=== PATIENT | male | born 1985 | race Caucasian/White ===

== ENCOUNTER 2019-12-11 02:16 | Emergency (ER) | payer OTHER, SELFPAY ==
--- NOTE | ~2019-12-11 | XR_ITS ---
XR chest 2V DATE: 12/11/2019 02:33 INDICATION: Cough TECHNIQUE: PA and lateral views COMPARISON: 04/09/2017 two-view chest FINDINGS: Normal heart size. No hilar or mediastinal enlargement. No pulmonary infiltrate or consolid ation, pleural effusion, pulmonary vascular congestion or pneumothorax. IMPRESSION: No active cardiopulmonary disease Reviewed, dictated and finalized at location A. ODONTIC TREATMENT COORDINATOR
[2019-12-11 02:19] VITALS: BP 138/64; PULSE 98; RESP 20; TEMP 36.6; O2SAT 99
--- NOTE | 2019-12-11 02:22 | ED.SOB ---
HPI - SOB/Dyspnea General Chief Complaint: Upper Respiratory Infection Stated Complaint: uri Time Seen by Provider: 12/11/19 02:19 Source: patient and RN notes reviewed Mode of arrival: ambulatory Limitations: no limitations History of Present Illness HPI Narrative: Pt is a 34 y/o male who presents to the ED with c/o shortness of breath which began 3 hours ago. Pt states he has been having respiratory symptoms for longer, but it has worsened tonight. He also reports rhinorrhea, wheezing, cough, and vomiting but denies a fever or sore throat. He states he typically vomited when he coughed vigorously. He states he has recently been exposed to people who have been sick. Pt reports a PMHx of asthma when he was young, but denies having any episodes recently. He also states he smokes approximately 6 cigarettes every day. MD elicited complaint: shortness of breath Pertinent past history: asthma (when he was young) Onset (ago): hour(s) (3 hours ago) Context: other (exposure to sick people recently) Timing: progressively worsening (since onset) Known history of: asthma (when he was young; no episodes recently) Associated symptoms: cough, wheezing, nausea/vomiting (vomiting) and other (rhinorrhea) Related Data Allergies Allergy/AdvReac Type Severity Reaction Status Date / Time blueberry Allergy Severe SHOCK Verified 12/11/19 02:28 lidocaine Allergy Mild Hives / Verified 12/11/19 02:28 Red Face Review of Systems Review of Systems: All systems reviewed & are unremarkable except as noted in HPI and below Constitutional: Constitutional: Denies fever(s) ENT: Reports nasal discharge (rhinorrhea) and Denies sore throat Respiratory: Respiratory: Reports cough, Reports dyspnea and Reports wheezing Gastrointestinal: Gastrointestinal: Reports vomiting PMFSH Past Medical History Medical History (Updated 12/11/19 @ 03:05 by Home Pryor DO) Anxiety Arthritis Depression GERD (gastroesophageal reflux disease) Irritable bowel syndrome Psoriasis PTSD (post-traumatic stress disorder) Surgical History Surgical History (Updated 12/11/19 @ 02:31 by Lisa De Jesus) H/O rotator cuff surgery Hx of tonsillectomy Social History Social History (Updated 12/11/19 @ 02:32 by Lisa De Jesus) Smoking status: Current every day smoker Tobacco type: cigarettes Gender identity (if verbalized by the patient): Male Exam Narrative: Exam Narrative: APPEARANCE: No acute distress, nontoxic, resting in bed EYES: EOMI HEENT: Normocephalic, atraumatic, TMs clear bilaterally, bilateral turbinates boggy, mild erythema no exudate posterior pharynx RESPIRATORY: No respiratory distress C mild wheezing with coughing only, no rhonchi or rales CARDIOVASCULAR: Regular rate and rhythm without murmurs rubs or gallops. ABDOMINAL: Soft, nontender, nondistended, no rebound or guarding MUSCULOSKELETAl: Moves all extremities. No clubbing, cyanosis or edema. NEURO: Awake and alert. Following commands, speech normal, no focal deficits SKIN:: Warm, dry. No rashes lesions or abrasions PSYCHIATRIC: Normal affect/mood, Course Course Emergency Course: Patient states he is feeling much better following breathing treatment. Repeat lung exam clear to all station bilaterally Discussed with patient results of workup and diagnosis. Discussed need for follow-up with primary care, proper use of medication, and reasons to return to the emergency department. Patient understands and agrees to current treatment plan Vital Signs Vital signs: Vital Signs Temperature 97.8 F 12/11/19 02:19 Pulse Rate 98 12/11/19 02:19 Respiratory Rate 20 12/11/19 02:19 Blood Pressure 138/64 12/11/19 02:19 Pulse Oximetry 99 12/11/19 02:19 Temperature 97.8 F 12/11/19 02:19 Pulse Rate 98 12/11/19 02:45 Respiratory Rate 18 12/11/19 02:45 Blood Pressure 138/64 12/11/19 02:19 Pulse Oximetry 99 12/11/19 02:19 MDM - SOB/Dyspnea Lab Data Labs: Influ
--- NOTE | 2019-12-11 02:29 | PC.NURSE ---
Patient being taken to xray.
[2019-12-11] MEDS: ALBUTEROL SULFATE NEB 2.5 MG/0.5 ML INH 5 MG INHALATION (02:37)
[2019-12-11 02:38] VITALS: PULSE 95; RESP 18
[2019-12-11] MEDS: IPRATROPIUM BR 0.02% INH SOLN 0.5 MG/2.5 ML VIAL INHALATION (02:38)
[2019-12-11 02:45] VITALS: PULSE 98; RESP 18
[2019-12-11 03:21] VITALS: BP 123/81; PULSE 85; RESP 18; O2SAT 98
== END 2019-12-11 03:24 | disposition home or self-care (01) ==
PROVIDERS: Emergency Provider Emergency Medicine; PCP Internal Medicine
DX: J10.1 Influenza due to other identified influenza virus with other respiratory manifestations (principal); F17.210 Nicotine dependence, cigarettes, uncomplicated; K21.9 Gastro-esophageal reflux disease without esophagitis; K58.9 Irritable bowel syndrome, unspecified; M19.90 Unspecified osteoarthritis, unspecified site
CPT/HCPCS: 71046; 87804; 94640; 99283

== ENCOUNTER 2020-02-15 12:45 | Emergency (ER) | payer OTHER, SELFPAY ==
--- NOTE | ~2020-02-15 | CT_ITS ---
EXAMINATION: CT abdomen pelvis w con EXAM DATE: 02/15/2020 14:36 INDICATION: Nausea vomiting, lower abdominal pain. TECHNIQUE: Spiral CT of the abdomen and pelvis was performed following intravenous injection of 100 m L Omnipaque 350. Axial, coronal and sagittal images were reviewed. The dose-length product (DLP) fo r this examination was 487.71 mGy-cm. The exposure was tailored according to patient size (auto mA e xposure control), and iterative reconstruction (ASIR) was used as additional dose reduction technique . Comparison is made to prior examination from 10/20/2015. FINDINGS: The liver, spleen, adrenal glands and pancreas are unremarkable. Gallbladder is unremarkab le. No biliary obstruction. Portal and splenic veins are patent. Kidneys enhance symmetrically. T here is no hydronephrosis. The prostate is unremarkable. The bladder is unremarkable. There is no retroperitoneal or pelvic lymphadenopathy. The appendix is normal. There is mild scattered colonic diverticulosis. There is no adjacent inflamm atory change to suggest diverticulitis. The stomach and small bowel are unremarkable. There is expec ricky amount of colonic stool. No free intraperitoneal gas. The heart is normal in size. There are no pericardial or pleural effusions. The lung bases are unremarkable. The bones are unremarkable. IMPRESSION: 1. No acute intra-abdominal findings. 2. Mild scattered colonic diverticulosis. Reviewed, dictated and finalized at location A.
[2020-02-15 12:47] VITALS: BP 118/72; PULSE 96; RESP 17; TEMP 36.8; O2SAT 100
[2020-02-15 13:04] LABS: Basophils Absolute Auto 0.1 K/mm3 (0.0-0.1); Basophils Percent Auto 0.6 % (0.2-1.2); Eosinophils Percent Auto 0.5 % (0-4.4); Hematocrit 48.8 % (42.0-52.0); Hemoglobin 16.5 g/dL (14.0-18.0); Immature Granulocyte Absolute 0.02 K/mm3 (0.00-0.031); Immature Granulocyte Percent A 0.3 % (0-0.5); Lymphocytes Absolute Auto 2.12 K/mm3 (0.9-3.2); Lymphocytes Percent Auto 27.3 % (18.3-44.2); Mean Corpuscular HGB Conc 33.8 g/dl (32-36); Mean Corpuscular Hemoglobin 29.2 pg (26-34); Mean Corpuscular Volume 86.2 fl (80-100); Mean Platelet Volume 10.3 fl (7.4-10.4); Monocytes Absolute Auto 0.6 K/mm3 (0.1-0.6); Monocytes Percent Auto 7.7 % (2.6-8.5); Neutrophils Absolute Auto 4.9 K/mm3 (1.3-6.7); Neutrophils Percent Auto 63.6 % (45.5-73.1); Platelet Count Result 256 k/mm3 (150-375); Red Blood Count 5.66 M/mm3 (4.6-6.20); Red Cell Distribution Width 11.5 % (11.5-14.5); White Blood Count 7.8 K/mm3 (4.5-10.0)
[2020-02-15 13:19] LABS: Alanine Aminotransferase 47 U/L (4-50); Alkaline Phosphatase 80 U/L (38-126); Aspartate Amino Transferase 27 U/L (17-59); Bilirubin,Total 0.9 mg/dL (0.2-1.3); Blood Urea Nitrogen 18 mg/dL (9-20); Calcium 9.8 mg/dL (8.4-10.2); Carbon Dioxide 26 mmol/L (22-30); Chloride 100 mmol/L (98-107); Estimated CRCL calculation 84 ml/min; Estimated Glomerular Filt Rate > 60; Glucose 104 mg/dL (75-110); Lipase 39 U/L (23-300); Potassium 4.1 mmol/L (3.4-5.0); Sodium 137 mmol/L (137-145)
--- NOTE | 2020-02-15 13:39 | ED.ABDPAIN ---
HPI - Abdominal Pain General Chief Complaint: Abdominal Pain Stated Complaint: weak, chills Time Seen by Provider: 02/15/20 13:39 Source: patient and RN notes reviewed Mode of arrival: ambulatory Limitations: no limitations History of Present Illness HPI narrative: A 35 y/o male presents to the ED with severe, sharp, diffuse ABD pain for the past 6 days. He states that he woke up with severe N/V/D 6 days ago and shortly after he developed severe, sharp, diffuse ABD pain. He notes that eating aggravates his ABD pain. He reports associated decreased intake, generalized weakness, fatigue, and a subjective fever. He also notes that he has not had a BM in 4 days. He denies any sore throat, cough, dysuria, hematuria, blood in stool, rhinorrhea, or nasal congestion. MD elicited complaint: abdominal pain Pertinent past history: none Onset (ago): day(s) Location: diffuse Severity: severe Quality: sharp Exacerbating factors: eating Associated symptoms: nausea (resolved), vomiting (resolved), diarrhea (resolved), fever (subjective), constipation (for 4 days) and other (decreased intake, generalized weakness, and fatigue) Related Data Home Medications Medication Instructions Recorded Confirmed diphenoxylate-atropine [Lomotil] 1 tablet PO TID 02/15/20 docusate sodium [Colace] 100 mg PO DAILY 02/15/20 esomeprazole magnesium [Nexium] 40 mg PO DAILY 02/15/20 ondansetron 02/15/20 Allergies Allergy/AdvReac Type Severity Reaction Status Date / Time blueberry Allergy Severe SHOCK Verified 02/15/20 12:50 lidocaine Allergy Mild Hives / Verified 02/15/20 12:50 Red Face Review of Systems Review of Systems: All systems reviewed & are unremarkable except as noted in HPI and below Constitutional: Constitutional: Reports fever(s) (subjective), Reports lethargy, Reports poor appetite and Reports weakness (generalized) ENT: Denies nasal congestion, Denies nasal discharge and Denies sore throat Respiratory: Respiratory: Denies cough Gastrointestinal: Gastrointestinal: Reports abdominal pain (diffuse), Denies hematochezia, Reports constipation (for 4 days), Reports diarrhea (resolved), Reports nausea (resolved) and Reports vomiting (resolved) Genitourinary: Genitourinary: Denies hematuria and Denies dysuria PMF Past Medical History Medical History Anxiety Arthritis Depression Fatty liver, alcoholic GERD (gastroesophageal reflux disease) Irritable bowel syndrome Psoriasis PTSD (post-traumatic stress disorder) Surgical History Surgical History H/O rotator cuff surgery History of placement of ear tubes History of removal of cyst History of tonsillectomy and adenoidectomy Hx of eye surgery Social History Social History (Updated 02/15/20 @ 13:48 by Jourdan Rivas) Smoking status: Current every day smoker Tobacco type: cigarettes Alcohol intake: former Substance use: current Substance use type: marijuana Gender identity (if verbalized by the patient): Male Exam Narrative: Exam Narrative: GENERAL: Well-appearing, well-nourished, and in no acute distress. HEAD: Normocephalic, atraumatic. EYES: EOMI. CHEST: Clear to auscultation. No respiratory distress. No wheezes rales or rhonchi HEART: Regular rate and rhythm. No murmur heard. Normal peripheral pulses. ABDOMEN: Soft, nondistended, normal active bowel sounds. Mild tenderness to palpation throughout the abdomen, without guarding. No CVA tenderness EXTREMITIES: Normal range of motion. No edema. SKIN: Warm, dry, no rash. NEURO: No focal deficits. Alert and oriented x3. PSYCH: Normal mood and affect Course Vital Signs Vital signs: Vital Signs Temperature 98.2 F 02/15/20 12:47 Pulse Rate 96 02/15/20 12:47 Respiratory Rate 17 02/15/20 12:47 Blood Pressure 118/72 02/15/20 12:47 Pulse Oximetry 100 02/15/20 12:47 Temperature 98.2 F 02/15/20 12:47 Pulse R
[2020-02-15 13:57] LABS: Add Urine Microscopic? YES; Appearance Urine Clear (Clear); Bilirubin Urine Negative (Negative); Blood Urine Negative (Negative); Color Urine Yellow (Yellow); Glucose Urine UA Negative (Negative); Ketones Urine Trace mg/dL (Negative); Leukocyte Esterase Ur Negative LEU/UL (Negative); Mucus Urine Heavy /lpf; Nitrate Urine Negative (Negative); Protein Urine 1+ mg/dL (Negative); RBC Urine 0-2 /hpf (0-2); Urobilinogen Urine Negative mg/dL (<2.0); WBC Urine 0-3 /hpf
[2020-02-15] MEDS: SODIUM CHLORIDE 0.9% IV 1,000 ML 999 ML IV CONT (14:07)
[2020-02-15] MEDS: ONDANSETRON INJ 4 MG/2 ML VIAL IV PUSH (14:07)
== END 2020-02-15 16:07 | disposition home or self-care (01) ==
PROVIDERS: Emergency Provider Emergency Medicine; PCP Family Medicine
DX: K52.9 Noninfective gastroenteritis and colitis, unspecified (principal); M19.90 Unspecified osteoarthritis, unspecified site; K21.9 Gastro-esophageal reflux disease without esophagitis; K58.9 Irritable bowel syndrome, unspecified; F17.210 Nicotine dependence, cigarettes, uncomplicated; K57.90 Diverticulosis of intestine, part unspecified, without perforation or abscess without bleeding
CPT/HCPCS: 36415; 74177; 80053; 81001; 83690; 85025; 96374; 96375; 99284; J0131; J2405; J7030; Q9967

== ENCOUNTER 2020-03-29 06:16 | Outpatient (CLI) | payer OTHER, SELFPAY | END 2020-03-29 06:17 | disposition home or self-care (01) | PROVIDERS: PCP Family Medicine; Visit Provider Internal Medicine Gastroenterology | DX: Z01.812 Encounter for preprocedural laboratory examination (principal); Z20.828 Contact with and (suspected) exposure to other viral communicable diseases | CPT/HCPCS: 87635; C9803; U0003 ==

== ENCOUNTER 2020-03-31 01:02 | Day surgery (SDC) | payer OTHER, SELFPAY ==
[2020-03-26 12:34] VITALS: BMI 28.3
[2020-03-31 08:49] VITALS: BP 163/91; PULSE 111; RESP 16; TEMP 36.6; O2SAT 98
[2020-03-31] MEDS: LACTATED RINGERS 1,000 ML 150 ML IV CONT (09:02)
--- NOTE | 2020-03-31 09:22 | WPDANESEPPF ---
Anes - Initial Pre Proc Eval Procedure: Operation Date: 03/31/20 09:45 Proposed Procedures p Esophagogastroduodenoscopy & Colonoscopy - Sha Santos MD Date/Time: 03/31/20 09:22 Surgeon: Sha Santos MD Pre Op Diagnosis: Abdominal Pain Patient Data Age: 35 Gender: M Height: 5 ft 7 in Weight: 81.7 kg Last Vital Signs Temp 97.9 F 03/31/20 08:49 Pulse 111 H 03/31/20 08:49 Resp 16 03/31/20 08:49 BP 163/91 H 03/31/20 08:49 Pulse Ox 98 03/31/20 08:49 Allergies Allergy/AdvReac Type Severity Reaction Status Date / Time blueberry Allergy Severe SHOCK Verified 03/31/20 08:48 lidocaine Allergy Unknown Hives Verified 03/31/20 08:48 Home Medications Medication Instructions Recorded Confirmed Type ondansetron 4 mg TRANSLINGUAL PRN PRN 02/15/20 03/26/20 History Nexium 40 mg PO DAILY 03/26/20 03/26/20 History famotidine 20 mg PO BID 03/26/20 03/26/20 History ibuprofen 200 mg PO Q6H PRN 03/26/20 03/26/20 History Patient hx anesthesia problems: none Family hx anesthesia problems: none PMFSH Past Medical History Medical History (Updated 03/25/20 @ 10:00 by Sha Santos MD) Alternating constipation and diarrhea Anxiety Arthritis Depression Fatty liver, alcoholic GERD (gastroesophageal reflux disease) Irritable bowel syndrome Psoriasis PTSD (post-traumatic stress disorder) Weight loss Surgical History Surgical History H/O rotator cuff surgery History of placement of ear tubes History of removal of cyst History of tonsillectomy and adenoidectomy Hx of eye surgery Social History Social History Smoking status: Current every day smoker Tobacco type: cigarettes Alcohol intake: former Substance use: current Substance use type: marijuana Gender identity (if verbalized by the patient): Male Anes - Eval Final PreProcedure Day of Procedure 03/31/20 09:22 Patient weight: normal Heart: regular rate and rhythm Lungs: clear to auscultation Airway: Mallampati scale class II Neurological: alert and oriented Last oral intake: >/= 8 hours ASA classification: II Emergent: no Anesthetic plan: proceed Anesthesia type and monitoring: general GIVS and standard monitoring Informed Consent: The patient's anesthetic plan and its attendant risks and benefits were discussed with the patient/family/POA. Questions were solicited and answers provided to the satisfaction of the patient/family/POA.
--- NOTE | 2020-03-31 09:41 | WPDHPUPDATE1 ---
History and Physical Update Update Date/Time: 03/31/20 09:41 History and Physical has been reviewed, including an updated exam of the patient. There are NO changes in the patient's condition. Risks, benefits, and alternatives have been discussed and questions answered. Patient agrees to proceed with procedure.
[2020-03-31 10:14] VITALS: BP 106/73; PULSE 76; RESP 22; O2SAT 100
[2020-03-31 10:24] VITALS: BP 112/79; PULSE 76; RESP 16; O2SAT 100
[2020-03-31 10:34] VITALS: BP 106/71; PULSE 58; RESP 22; O2SAT 100
== END 2020-03-31 11:01 | disposition home or self-care (01) ==
PROVIDERS: PCP Family Medicine; Visit Provider Internal Medicine Gastroenterology
PROC: 0DJ08ZZ Inspection of Upper Intestinal Tract, Via Natural or Artificial Opening Endoscopic (ICD-10-PCS; CPT 43235; principal; 2020-03-31 09:45)
DX: R19.4 Change in bowel habit (principal); R63.4 Abnormal weight loss; R10.84 Generalized abdominal pain; K57.30 Diverticulosis of large intestine without perforation or abscess without bleeding; K64.8 Other hemorrhoids; K21.9 Gastro-esophageal reflux disease without esophagitis; K44.9 Diaphragmatic hernia without obstruction or gangrene; R11.0 Nausea; F41.8 Other specified anxiety disorders; F43.10 Post-traumatic stress disorder, unspecified; K76.0 Fatty (change of) liver, not elsewhere classified; F17.210 Nicotine dependence, cigarettes, uncomplicated; F12.90 Cannabis use, unspecified, uncomplicated
CPT/HCPCS: 45380; 43239; 88305; J2704; J7120

== ENCOUNTER 2020-04-08 07:55 | Outpatient (CLI) | payer OTHER, SELFPAY ==
--- NOTE | ~2020-04-08 | US_ITS ---
EXAMINATION: US abdomen complete DATE: 04/08/2020 08:45 INDICATION: Other unspecified signs and symptoms involving the digestive system, generalized abdomina l pain TECHNIQUE: Multiple grayscale and Doppler ultrasound images of the abdomen were obtained. COMPARISON: 08/20/2019; CT, 02/15/2020 FINDINGS: The head, body, and tail of the pancreas are normal. The liver is normal with normal echoge nicity and echotexture. No surface nodularity. Normal hepatopetal flow in the main portal vein. The g allbladder is normal with no abnormal wall thickening, pericholecystic fluid or stones. The normal co mmon bile duct measures 2 mm. There was no sonographic Dean sign. The visualized portions of the ao rta and inferior vena cava are normal. The right kidney measures 9.2 x 5.4 x 4.5 cm. The left kidney measures 10.6 x 5.7 x 5.1 cm. The kidne ys demonstrate normal parenchymal echogenicity. There is no hydronephrosis. A 9 mm hypoechoic area in the spleen without suspicious correlate on the recent CT likely represents a small lymphangioma or h emangioma. The spleen is otherwise normal in appearance and measures 11.2 cm. IMPRESSION: 1. No sonographic correlate for the patient's symptoms. Reviewed, dictated and finalized at location A.
== END 2020-04-08 07:56 | disposition home or self-care (01) ==
PROVIDERS: PCP Family Medicine; Visit Provider Nurse Practitioner Family
DX: R19.8 Other specified symptoms and signs involving the digestive system and abdomen (principal)
CPT/HCPCS: 76700

== ENCOUNTER 2020-05-19 22:40 | Emergency (ER) | payer OTHER, SELFPAY ==
--- NOTE | ~2020-05-19 | CT_ITS ---
EXAMINATION: CT BRAIN W/O DATE: 05/19/2020 23:41 INDICATION: Vision loss. Hallucinations. Headache. TECHNIQUE: Computed tomography (CT) of the head was performed without intravenous contrast. The dose- length product was 681.00 mGy-cm. The mA was adjusted according to patient size. Iterative reconstruc tion technique was employed. COMPARISON: CT dated 04/09/2017 FINDINGS: Normal brain parenchymal volume for age. Normal birmingham-white differentiation. No acute intrac ranial hemorrhage, infarction, mass or mass effect. No ventriculomegaly or midline shift. Midline sagittal images demonstrate a normal corpus callosum, c raniovertebral junction and sella turcica. Basilar cisterns are patent. Paranasal sinuses and mastoids are pneumatized. No depressed skull fractures. IMPRESSION: 1. No acute intracranial abnormality. Reviewed, dictated and finalized at location A.
[2020-05-19 22:50] VITALS: BP 136/86; PULSE 82; RESP 15; TEMP 36.6; O2SAT 100
--- NOTE | 2020-05-19 23:29 | ED.EYEPROB ---
HPI - Eye Problem General Chief complaint: Eye Problems Stated complaint: Vision loss in Left eye Time Seen by Provider: 05/19/20 22:49 Source: RN notes reviewed History of Present Illness HPI Narrative: Patient presents emergency department from home for vision changes. Patient states this evening he was playing video games when he began to have flashing lights out of his left eye. States that with this he had partial loss of vision and gone upstairs to tell his he states that vision became worse and he began to have hallucinations out of his left eye. He states that whenever he thought of it he visualized in his left eye. He states no problems with the right eye. He states that during this time he did have a headache and some ringing in his ears. He states that this time all the symptoms have resolved. He states he was smoking marijuana this evening which she does on a nightly basis. Patient states that he has been worked up for chronic abdominal pain over the past 4 months which I think is irritable bowel. He states that his abdominal pain is cramping that caused him to feel like he may pass out and he states he was having this abdominal pain this evening which she states could have contributed to the symptoms. States that this time he has no headache or ringing in the ears and states all vision is back to normal. He denies wearing contacts or glasses Related Data Home Medications Medication Instructions Recorded Confirmed ondansetron 4 mg TRANSLINGUAL PRN PRN 02/15/20 04/02/20 famotidine 20 mg PO BID 03/26/20 04/02/20 ibuprofen 200 mg PO Q6H PRN 03/26/20 04/02/20 Allergies Allergy/AdvReac Type Severity Reaction Status Date / Time blueberry Allergy Severe SHOCK Verified 05/19/20 22:55 lidocaine Allergy Unknown Hives Verified 04/29/20 09:16 Opioids - Morphine Analogues AdvReac Other Verified 05/19/20 22:55 Review of Systems Review of Systems: Narrative: Gen.: Denies fevers or chills Eyes: See HPI ENT: Denies congestion Respiratory: Denies shortness of breath or cough CV: Denies chest pain or palpitations GI: Chronic abdominal pain nausea, emesis or diarrhea denies burning, urgency, frequency or hematuria Musculoskeletal: Denies back pain or muscle pain Neuro: Denies numbness, tingling, weakness or focal weakness reports headache during episode of vision changes Skin: Denies rash Except as documented, all other systems reviewed and negative [facility] Past Medical History Medical History Alternating constipation and diarrhea Anxiety Arthritis Depression Fatty liver, alcoholic GERD (gastroesophageal reflux disease) Irritable bowel syndrome Psoriasis PTSD (post-traumatic stress disorder) Weight loss Surgical History Surgical History H/O rotator cuff surgery History of placement of ear tubes History of removal of cyst History of tonsillectomy and adenoidectomy Hx of eye surgery Social History Social History Smoking status: Current every day smoker Tobacco type: cigarettes Alcohol intake: former Substance use: current Substance use type: marijuana Gender identity (if verbalized by the patient): Male Exam Narrative: Exam Narrative: APPEARANCE: No acute distress, nontoxic, resting in bed HEENT: Normocephalic, atraumatic, OMM, TMs clear bilaterally EYES: PERRL, EOMI no conjunctival erythema, no swelling of the upper or lower eyelids, no papilledema NECK: Supple, nontender, full range of motion without pain, no meningismus RESPIRATORY: No respiratory distress, clear to auscultation bilaterally with no rhonchi wheezing or rales CARDIOVASCULAR: RRR s murmur ABDOMINAL: Soft, nontender, nondistended MUSCULOSKELETAL: Moves all extremities. No clubbing, cyanosis or edema. NEURO: A and O ?3, following commands, speech normal, cranial nerves II
[2020-05-20 00:05] LABS: Basophils Absolute Auto 0.1 K/mm3 (0.0-0.1); Basophils Percent Auto 0.7 % (0.2-1.2); Eosinophils Absolute Auto 0.1 K/mm3 (0-0.3); Eosinophils Percent Auto 0.6 % (0-4.4); Hematocrit 46.5 % (42.0-52.0); Hemoglobin 15.8 g/dL (14.0-18.0); Immature Granulocyte Absolute 0.03 K/mm3 (0.00-0.031); Immature Granulocyte Percent A 0.3 % (0-0.5); Lymphocytes Absolute Auto 2.46 K/mm3 (0.9-3.2); Mean Corpuscular Hemoglobin 29.6 pg (26-34); Mean Corpuscular Volume 87.1 fl (80-100); Mean Platelet Volume 10.3 fl (7.4-10.4); Monocytes Absolute Auto 0.6 K/mm3 (0.1-0.6); Monocytes Percent Auto 6.8 % (2.6-8.5); Neutrophils Absolute Auto 5.6 K/mm3 (1.3-6.7); Neutrophils Percent Auto 63.6 % (45.5-73.1); Platelet Count Result 234 k/mm3 (150-375); Red Blood Count 5.34 M/mm3 (4.6-6.20); Red Cell Distribution Width 11.7 % (11.5-14.5); White Blood Count 8.8 K/mm3 (4.5-10.0)
[2020-05-20 00:18] LABS: Lipase 85 U/L (23-300)
[2020-05-20 00:19] LABS: Alanine Aminotransferase 32 U/L (4-50); Albumin Level 4.8 g/dL (3.5-5.1); Alkaline Phosphatase 73 U/L (38-126); Aspartate Amino Transferase 25 U/L (17-59); Bilirubin,Total 0.3 mg/dL (0.2-1.3); Blood Urea Nitrogen 16 mg/dL (9-20); Calcium 9.5 mg/dL (8.4-10.2); Carbon Dioxide 28 mmol/L (22-30); Chloride 100 mmol/L (98-107); Estimated Glomerular Filt Rate > 60; Glucose 108 mg/dL (75-110); Potassium 3.8 mmol/L (3.4-5.0); Sodium 137 mmol/L (137-145)
[2020-05-20 00:55] VITALS: BP 127/81; PULSE 80; RESP 20; O2SAT 99
== END 2020-05-20 00:55 | disposition home or self-care (01) ==
PROVIDERS: Emergency Provider Emergency Medicine; PCP Family Medicine
DX: H53.8 Other visual disturbances (principal); M19.90 Unspecified osteoarthritis, unspecified site; K21.9 Gastro-esophageal reflux disease without esophagitis; K58.2 Mixed irritable bowel syndrome; F17.290 Nicotine dependence, other tobacco product, uncomplicated
CPT/HCPCS: 36415; 70450; 80053; 83690; 85025; 99284

== ENCOUNTER 2021-01-19 15:28 | Outpatient (CLI) | payer OTHER, SELFPAY | END 2021-01-19 15:29 | disposition home or self-care (01) | LOC: ANHCOVIDVC 15:29 | PROVIDERS: PCP Family Medicine | DX: Z23 Encounter for immunization (principal) | CPT/HCPCS: 0001A; 91300 ==

== ENCOUNTER 2021-02-09 15:31 | Outpatient (CLI) | payer OTHER, SELFPAY | END 2021-02-09 15:32 | disposition home or self-care (01) | LOC: ANHCOVIDVC 15:31 | PROVIDERS: PCP Family Medicine | DX: Z23 Encounter for immunization (principal) | CPT/HCPCS: 0002A; 91300 ==

== ENCOUNTER 2022-07-05 08:30 | Outpatient (CLI) | payer OTHER, SELFPAY ==
--- NOTE | 2022-07-05 11:00 | NEURO_ITS ---
Impression: # Complains of pain and twitching in left upper extremity muscles. # No Carpal Tunnel Syndrome or ulnar neuropathy. # Normal needle/EMG exam. No evidence of fibrillation, myotonia or fasciculations. # Clinical correlation recommended. Nerve Conduction Studies Anti Sensory Summary Table Stim Site NR Peak (ms) P-T Amp (?V) Site1 Site2 Delta-P (ms) Dist (cm) Rory (m/s) Left Median Anti Sensory (2-3nd Digit) Wrist 2.3 53.1 Wrist 2-3nd Digit 2.3 14.0 61 Wrist 2.4 62.2 Wrist 2-3nd Digit 2.3 14.0 61 Left Radial Anti Sensory (Base 1st Digit) Wrist 1.9 27.4 Wrist Base 1st Digit 1.9 0.0 Left Ulnar Anti Sensory (5th Digit) Wrist 2.3 58.3 Wrist 5th Digit 2.3 14.0 61 Motor Summary Table Stim Site NR Onset (ms) O-P Amp (mV) Site1 Site2 Delta-0 (ms) Dist (cm) Rory (m/s) Left Median Motor (Abd Poll Brev) Wrist 2.9 3.2 Elbow Wrist 4.1 26.0 63 Elbow 7.0 2.9 Left Ulnar Motor (Abd Dig Minimi) Wrist 2.1 6.7 A Elbow Wrist 5.0 30.0 60 A Elbow 7.1 5.9 F Wave Studies NR F-Lat (ms) L-R F-Lat (ms) Left Median (Mrkrs) (Abd Poll Brev) 27.19 Left Ulnar (Mrkrs) (Abd Dig Min) 26.33 EMG Side Muscle Nerve Root Ins Act Fibs Amp Dur Recrt Comment Left 1stDorInt Ulnar C8-T1 Nml Nml Nml Nml Nml Left Ext Indicis Radial (Post Int) C7-8 Nml Nml Nml Nml Nml Left Ext Digitorum Radial (Post Int) C7-8 Nml Nml Nml Nml Nml Left BrachioRad Radial C5-6 Nml Nml Nml Nml Nml Left PronatorTeres Median C6-7 Nml Nml Nml Nml Nml Left Abd Poll Brev Median C8-T1 Nml Nml Nml Nml Nml Left Biceps Musculocut C5-6 Nml Nml Nml Nml Nml Left Triceps Radial C6-7-8 Nml Nml Nml Nml Nml Left Deltoid Axillary C5-6 Nml Nml Nml Nml Nml Left ABD Dig Min Ulnar C8-T1 Nml Nml Nml Nml Nml MTDD
== END 2022-07-05 08:31 | disposition home or self-care (01) ==
PROVIDERS: PCP Family Medicine; Visit Provider Nurse Practitioner Family
DX: M54.2 Cervicalgia (principal)
CPT/HCPCS: 95886; 95909; 95911

== ENCOUNTER 2022-08-25 00:52 | Day surgery (SDC) | payer OTHER, SELFPAY ==
[2022-08-11 10:57] VITALS: BMI 28.1
[2022-08-25 09:25] VITALS: BP 123/69; PULSE 80; RESP 17; TEMP 36.1; O2SAT 100
[2022-08-25] MEDS: LACTATED RINGERS 1,000 ML 150 ML IV CONT (09:33)
--- NOTE | 2022-08-25 09:55 | PM.HPGS ---
History of Present Illness History of Present Illness Consent: Risks, benefits, and alternatives have been discussed and questions answered. Patient agrees to proceed with procedure. Chief complaint: GERD Narrative: Sebastián Dukes Jr. is a 37 year old male presents with history of GE reflux and globus sensation. Patient reports a long history of heartburn and acid reflux. Apparently was previously stable on Nexium 40mg p.o. daily supplement with Pepcid. He began to complain of a lump in his throat over the last month. This occurs intermittently. For this reason a trial of omeprazole was started and symptoms of acid reflux intensified. Patient has resumed his previous medication trial but symptoms have not yet resolved over the last 3 weeks. Patient denies any weight loss. He has had no bleeding. No difficulty swallowing. Family history noncontributory. Previous EGD and colonoscopy several years ago 2 years ago was unremarkable. Previously followed by Dr. Velasco. Patient does admit to daily marijuana use. [facility] Past Medical History Medical History Alternating constipation and diarrhea Anxiety Arthritis BMI 27.0-27.9,adult Colonoscopy planned Depression Fatty liver, alcoholic GERD (gastroesophageal reflux disease) IBS (irritable bowel syndrome) Irritable bowel syndrome Psoriasis PTSD (post-traumatic stress disorder) Visual hallucination Weight loss Surgical History Surgical History H/O rotator cuff surgery History of placement of ear tubes History of removal of cyst History of tonsillectomy and adenoidectomy Hx of eye surgery Family History Family History Sibling Family history of mental disorder Depression Family history of gastrointestinal disorder Father Patient's father is in good health Hypertension Family history of psoriasis Hyperlipidemia Mother Family history of diabetes mellitus in first degree relative Hypertension COVID-19 Diabetes mellitus Epilepsy Sibling No problems noted. 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 Gender identity (if verbalized by the patient): Male Spiritual care concerns: No Meds Home Medications and Allergies Home Medications Medication Instructions Recorded Confirmed Type cyclobenzaprine 10 mg tablet 10 mg PO TID PRN muscle spasm #60 05/08/22 08/25/22 Rx tabs diclofenac sodium 75 mg 75 mg PO BID PRN pain #60 tabs 05/08/22 08/25/22 Rx tablet,delayed release amitriptyline 50 mg tablet 25 mg PO QHS #90 tabs 07/13/22 08/25/22 Rx esomeprazole magnesium 40 mg 40 mg PO DAILY #30 caps 07/13/22 08/25/22 Rx capsule,delayed release (Nexium) famotidine 20 mg tablet 20 mg PO BID acid reflux #60 tabs 07/13/22 08/25/22 Rx triamcinolone acetonide 0.1 % 1 applic topical BID #80 grams 07/13/22 08/25/22 Rx topical ointment Allergies Allergy/AdvReac Type Severity Reaction Status Date / Time blueberry Allergy Severe SHOCK Verified 08/25/22 09:23 lidocaine Allergy Unknown Hives Verified 08/25/22 09:23 Opioids - Morphine Analogues AdvReac Other Verified 08/25/22 09:23 Vital Signs Vital Signs - 24 hr 08/25/22 09:25 Temperature 97.0 F L Pulse Rate 80 Respiratory Rate 17 Blood Pressure 123/69 Pulse Oximetry 100 Oxygen Delivery Room Air Exam Narrative: Physical exam reveals patient to be alert. Vital sig
--- NOTE | 2022-08-25 10:16 | WPDANESEPPF ---
Anes - Initial Pre Proc Eval Procedure: Operation Date: 08/25/22 09:45 Proposed Procedures p Esophagogastroduodenoscopy - Simon Gonzáles MD Date/Time: 08/25/22 10:16 Surgeon: Simon Gonzáles MD Pre Op Diagnosis: GERD Patient Data Age: 37 Gender: M Height: 1.73 m Weight: 87.9 kg Last Vital Signs Temp 97.0 F L 08/25/22 09:25 Pulse 80 08/25/22 09:25 Resp 17 08/25/22 09:25 BP 123/69 08/25/22 09:25 Pulse Ox 100 08/25/22 09:25 O2 Del Method Room Air 08/25/22 09:25 Allergies Allergy/AdvReac Type Severity Reaction Status Date / Time blueberry Allergy Severe SHOCK Verified 08/25/22 09:23 lidocaine Allergy Unknown Hives Verified 08/25/22 09:23 Opioids - Morphine Analogues AdvReac Other Verified 08/25/22 09:23 Home Medications Medication Instructions Recorded Confirmed Type cyclobenzaprine 10 mg tablet 10 mg PO TID PRN muscle spasm #60 05/08/22 08/25/22 Rx tabs diclofenac sodium 75 mg 75 mg PO BID PRN pain #60 tabs 05/08/22 08/25/22 Rx tablet,delayed release amitriptyline 50 mg tablet 25 mg PO QHS #90 tabs 07/13/22 08/25/22 Rx famotidine 20 mg tablet 20 mg PO BID acid reflux #60 tabs 07/13/22 08/25/22 Rx triamcinolone acetonide 0.1 % 1 applic topical BID #80 grams 07/13/22 08/25/22 Rx topical ointment esomeprazole magnesium 40 mg 40 mg PO BID #60 caps 08/25/22 Rx capsule,delayed release (Nexium) Patient hx anesthesia problems: none Family hx anesthesia problems: none Results Review: All pre-operative results and documents have been reviewed as part of the pre-operative evaluation. [facility] Past Medical History Medical History Alternating constipation and diarrhea Anxiety Arthritis BMI 27.0-27.9,adult Colonoscopy planned Depression Fatty liver, alcoholic GERD (gastroesophageal reflux disease) IBS (irritable bowel syndrome) Irritable bowel syndrome Psoriasis PTSD (post-traumatic stress disorder) Visual hallucination Weight loss Surgical History Surgical History H/O rotator cuff surgery History of placement of ear tubes History of removal of cyst History of tonsillectomy and adenoidectomy Hx of eye surgery Family History Family History Sibling Family history of mental disorder Depression Family history of gastrointestinal disorder Father Patient's father is in good health Hypertension Family history of psoriasis Hyperlipidemia Mother Family history of diabetes mellitus in first degree relative Hypertension COVID-19 Diabetes mellitus Epilepsy Sibling No problems noted. 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 Informed Consent: The patient's anesthetic plan and its attendant risks and benefits were discussed with the patient/family/POA. Questions were solicited and answers provided to the satisfac
[2022-08-25 10:20] VITALS: BP 98/56; PULSE 82; RESP 28; O2SAT 100
[2022-08-25 10:30] VITALS: BP 108/88; PULSE 80; RESP 21; O2SAT 100
[2022-08-25 10:40] VITALS: BP 102/66; PULSE 81; RESP 19; O2SAT 99
== END 2022-08-25 10:47 | disposition home or self-care (01) ==
PROVIDERS: PCP Family Medicine; Visit Provider Internal Medicine Gastroenterology
PROC: 0DJ08ZZ Inspection of Upper Intestinal Tract, Via Natural or Artificial Opening Endoscopic (ICD-10-PCS; CPT 43235; principal; 2022-08-25 09:45)
DX: K21.9 Gastro-esophageal reflux disease without esophagitis (principal); F41.9 Anxiety disorder, unspecified; M19.90 Unspecified osteoarthritis, unspecified site; F32.A Depression, unspecified; K76.0 Fatty (change of) liver, not elsewhere classified; K58.9 Irritable bowel syndrome, unspecified; L40.9 Psoriasis, unspecified; F43.10 Post-traumatic stress disorder, unspecified; F17.210 Nicotine dependence, cigarettes, uncomplicated; F12.90 Cannabis use, unspecified, uncomplicated
CPT/HCPCS: 43239; 87081; J2704; J3010; J7120

== ENCOUNTER 2023-07-08 19:03 | Emergency (ER) | payer OTHER, SELFPAY ==
--- NOTE | ~2023-07-08 | XR_ITS ---
EXAMINATION: XR chest 2V DATE: 07/08/2023 19:19 INDICATION: 4 weeks of cough TECHNIQUE: PA and lateral views of the chest were obtained. COMPARISON: Chest radiograph dated 12/11/2019 FINDINGS: The lungs remain clear with no focal airspace opacities, pulmonary edema, pleural effusion or pneumot horax. The cardiomediastinal silhouette is normal. Visualized bones and soft tissues are unremarkable . IMPRESSION: 1. No acute cardiopulmonary disease. Reviewed, dictated and finalized at location A.
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
[2023-07-08 19:19] VITALS: BP 132/88; PULSE 98; RESP 16; TEMP 36.6; O2SAT 98
--- NOTE | 2023-07-08 19:21 | PC.NURSE ---
Lung sounds/respiratory exam deferred to provider.
--- NOTE | 2023-07-08 19:35 | ECG_ITS ---
Measurements Intervals [place] Rate: 85 P: 43 WV: 124 QRS: 65 QRSD: 101 T: 43 QT: 359 QTc: 428 Interpretive Statements SINUS RHYTHM NORMAL ELECTROCARDIOGRAM NO PREVIOUS ECG AVAILABLE FOR COMPARISON Electronically Signed On 07-10-2023 11:48:03 CDT by Mj Myrick M.D.
== END 2023-07-08 19:43 | disposition home or self-care (01) ==
PROVIDERS: Emergency Provider Nurse Practitioner Family; PCP Family Medicine
DX: J02.9 Acute pharyngitis, unspecified (principal); R09.82 Postnasal drip; T78.40XA Allergy, unspecified, initial encounter; Z87.891 Personal history of nicotine dependence; F12.90 Cannabis use, unspecified, uncomplicated; M19.90 Unspecified osteoarthritis, unspecified site; K70.0 Alcoholic fatty liver; K21.9 Gastro-esophageal reflux disease without esophagitis; L40.9 Psoriasis, unspecified
CPT/HCPCS: 71046; 93005; 99213; G0463

== ENCOUNTER 2024-05-22 08:36 | Outpatient (CLI) | payer OTHER, SELFPAY ==
--- NOTE | ~2024-05-22 | US_ITS ---
Abdominal Sonogram: Real-time sonographic imaging of the abdomen was performed. Clinical History: Abdominal pain Findings: The liver appears echogenic, with no evidence of mass lesion or bile duct dilatation. Main portal vein demonstrates normal direction of flow. The spleen is upper limits of normal in size with out evidence of focal lesion. The gallbladder is well distended, and appears normal with no evidence of gallstone or wall thickening. The common bile duct measures 3 mm. The visualized pancreas, aorta , and IVC are unremarkable. The right kidney measures 10.7 cm in length and the left kidney measures 10.9 cm. There is no hydronephrosis or renal calculus. Impression: Diffuse fatty infiltration of the liver. Reviewed, dictated and finalized at location M. Impression: Diffuse fatty infiltration of the liver.
== END 2024-05-22 08:37 | disposition home or self-care (01) ==
PROVIDERS: PCP Family Medicine; Visit Provider Physician Assistant Medical
DX: K76.0 Fatty (change of) liver, not elsewhere classified (principal); G89.29 Other chronic pain
CPT/HCPCS: 76700

== ENCOUNTER 2024-08-20 09:22 | Emergency (ER) | payer OTHER, SELFPAY ==
--- NOTE | ~2024-08-20 | CT_ITS ---
EXAMINATION: CT cervical spine wo con DATE: 08/20/2024 12:00 INDICATION: Posterior neck pain. TECHNIQUE: Computed tomography (CT) of the cervical spine was performed without intravenous contrast. Automated exposure control and iterative reconstruction technique were employed. The dose-length pro duct was 470.04 mGy-cm. COMPARISON: None FINDINGS: There is kyphosis of cervical spine. There is 5 degrees levocurvature of cervical spine. Ve rtebral body heights are normal. Intervertebral disc heights are normal. The following disc levels ar e specifically discussed: C2-C3: There is mild left uncovertebral joint osteoarthritis. There is mild bilateral facet joint ost eoarthritis. There is no neural foraminal stenosis. There is no central canal stenosis. C3-C4: There is mild right and moderate left uncovertebral joint osteoarthritis. There is mild bilate ral facet joint osteoarthritis. There is mild left neural foraminal stenosis. There is mild central c anal stenosis. C4-C5: There is mild bilateral uncovertebral joint osteoarthritis. There is mild bilateral facet join t osteoarthritis. There is no neural foraminal stenosis. There is no central canal stenosis. C5-C6: There is mild left uncovertebral joint osteoarthritis. There is no facet joint osteoarthritis. There is no neural foraminal stenosis. There is no central canal stenosis. C6-C7: There is no uncovertebral joint osteoarthritis. There is no facet joint osteoarthritis. There is no neural foraminal stenosis. There is no central canal stenosis. C7-T1: There is no uncovertebral joint osteoarthritis. There is mild bilateral facet joint osteoarthr itis. There is no neural foraminal stenosis. There is no central canal stenosis. IMPRESSION: 1. Mild cervical spondylosis. Reviewed, dictated and finalized at location A.
--- NOTE | ~2024-08-20 | CT_ITS ---
EXAMINATION: CT thoracic spine wo con DATE: 08/20/2024 12:00 INDICATION: Back pain. Spasms. TECHNIQUE: Computed tomography (CT) of the thoracic spine was performed without intravenous contrast. Automated exposure control and iterative reconstruction technique were employed. The dose-length pro duct was 1353.01 mGy-cm. COMPARISON: None FINDINGS: There is 3 degrees dextrocurvature of thoracic spine. Vertebral body heights are normal. Th ere is mild chronic anterior wedging of T11-L1 vertebral bodies, likely physiologic. There is mildly decreased disc height from T3-T4 through T5-T6. There is multilevel mild facet joint osteoarthritis. No neural foraminal stenosis. No central canal stenosis. IMPRESSION: 1. Mild thoracic spondylosis. Reviewed, dictated and finalized at location A.
[2024-08-20 09:25] VITALS: BP 121/81; PULSE 96; RESP 16; TEMP 36.6; O2SAT 98
[2024-08-20 10:30] VITALS: BP 115/78; PULSE 81; RESP 20; O2SAT 95
[2024-08-20] MEDS: methylPREDNISolone SOD SUCC 125 MG VIAL IV PUSH (11:15)
[2024-08-20] MEDS: methocarbamoL 500 MG TABLET 1000 MG PO (11:16)
[2024-08-20] MEDS: KETOROLAC 30 MG/ML VIAL (*BKC) IV PUSH (11:16)
[2024-08-20] MEDS: HYDROcodone/acetaminophen (*CRX) 5-325 MG TABLET 1 TAB PO (11:16)
--- NOTE | 2024-08-20 11:29 | ED.BACK ---
HPI - Back Pain/Injury General Chief Complaint: Back Pain/Injury Stated Complaint: back/neck pain Time Seen by Provider: 08/20/24 09:53 Source: patient Mode of arrival: ambulatory Limitations: no limitations History of Present Illness HPI Narrative: Patient is a 39-year-old male who presents the ED with report of neck and upper back pain. Patient reports having pain for the last 4-5 days after waking up one morning. States pain is worse with any type of movement, sitting up straight, turning head. He has been taking ibuprofen and Flexeril without improvement. Denies any known injury. He does have history of cervical herniated disc. Denies pain radiating down arms. Denies numbness. Denies tingling. Denies fevers, SOB. Related Data Home Medications Medication Instructions Recorded Confirmed cetirizine 10 mg capsule (All Day 10 mg PO DAILY PRN 03/06/24 07/03/24 Allergy (cetirizine)) Allergies Allergy/AdvReac Type Severity Reaction Status Date / Time blueberry Allergy Severe SHOCK Verified 08/20/24 09:23 lidocaine Allergy Unknown Hives Verified 08/20/24 09:23 Opioids - Morphine Analogues AdvReac Other Verified 08/20/24 09:23 Review of Systems Review of Systems: All systems reviewed & are unremarkable except as noted in HPI. All systems reviewed & are unremarkable except as noted in HPI and below PMFSH Past Medical History Medical History Alternating constipation and diarrhea Anxiety Arthritis BMI 30.0-30.9,adult BMI 31.0-31.9,adult BMI 32.0-32.9,adult Chest pain Colonoscopy planned Depression Fatty liver, alcoholic GERD (gastroesophageal reflux disease) IBS (irritable bowel syndrome) Irritable bowel syndrome Psoriasis PTSD (post-traumatic stress disorder) PTSD (post-traumatic stress disorder) Sleep apnea, obstructive Visual hallucination Weight loss Surgical History Surgical History H/O rotator cuff surgery History of placement of ear tubes History of removal of cyst History of tonsillectomy and adenoidectomy Hx of eye surgery Family History Family History Sibling Family history of mental disorder Depression Family history of gastrointestinal disorder Epilepsy Father Patient's father is in good health Hypertension Family history of psoriasis Hyperlipidemia Diabetes mellitus Mother Family history of diabetes mellitus in first degree relative Hypertension COVID-19 Diabetes mellitus Epilepsy Social History Social History Smoking packs per day: 0.5 Smoking cigarettes per day: 10.0 Years smoked: 15 Smoking pack-years: 7.50 Smoking status: Former smoker Tobacco type: cigarettes Second hand tobacco smoke exposure: No Smoking end date: 12/13/22 Alcohol intake: current Alcohol use details: on occasion Substance use: current Substance use type: marijuana Do You Feel Safe in your Home?: Yes Lack of Transportation: No Lack of Food: Sometimes True Current Housing: I Have Housing Concerned About Future Housing: No Difficulty Paying Gas/Electric Bills: No Difficulty Paying for Meds: No Currently Unemployed: No Education: Bachelor's Degree Difficulty w/ Childcare or Family Care: No Living arrangements: with family Occupation/Education: occupation 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 HEAD: Normocephalic, atraumatic. NECK: Mild tenderness palpation throughout lower cervical midline spine and into bilateral paraspinal musculature. No palpable bony defor
[2024-08-20 11:30] VITALS: BP 105/71; PULSE 73; RESP 18; O2SAT 97
== END 2024-08-20 12:55 | disposition home or self-care (01) ==
PROVIDERS: Emergency Provider Physician Assistant; PCP Family Medicine
DX: S29.012A Strain of muscle and tendon of back wall of thorax, initial encounter (principal); S16.1XXA Strain of muscle, fascia and tendon at neck level, initial encounter; F41.9 Anxiety disorder, unspecified; M19.90 Unspecified osteoarthritis, unspecified site; K21.9 Gastro-esophageal reflux disease without esophagitis; G47.30 Sleep apnea, unspecified; X58.XXXA Exposure to other specified factors, initial encounter
CPT/HCPCS: 72125; 72128; 96374; 96375; 99284; A9270; J1885; J2919